=== PATIENT | female | born 1955 | race Two or more races ===

== ENCOUNTER → 2019-11-10 | Outpatient (CLI) | payer OTHER | END | disposition home or self-care (01) | LOC: RAD 11:44 | DX: M54.6 Pain in thoracic spine (principal); M54.5 Low back pain ==

== ENCOUNTER 2019-11-11 08:00 | Outpatient (CLI) | payer OTHER | END 2019-11-11 08:08 | disposition home or self-care (01) | LOC: LAB 08:00 | DX: E03.8 Other specified hypothyroidism (principal); I10 Essential (primary) hypertension ==

== ENCOUNTER 2025-07-30 08:10 | Outpatient (CLI) | payer OTHER ==
[2025-07-30 09:05] LABS: BASO % 0.5 % (0.1-1.2); EOS # 0.07 (0.04-0.54); EOS % 1.7 % (0.7-7.0); LYMPH # 1.23 (1.18-3.74); LYMPH % 29.1 % (19.3-53.1); MEAN PLATELET VOLUME 10.10 fl (9.4-12.4); MONO # 0.48 (0.24-0.82); MONO % 11.3 % (4.7-12.5); NEUT # 2.43 (1.56-6.13); NEUT % 57.4 % (34.0-71.1); RED CELL DISTRIBUTION WIDTH 13.6 % (11.6-14.4)
[2025-07-30 10:02] LABS: ALT/SGPT 26.0 U/L (12-78); AST/SGOT 17.0 U/L (15-37); BILIRUBIN TOTAL 0.85 mg/dL (0.3-1.2); BUN CREA RATIO 20.0 (7.0-25.0); CREATININE SERUM 0.97 mg/dL (0.55-1.02); GFR 56.77; GLOBULINA 2.6 G/DL (2.4-3.5); GLUCOSE FASTING 108.0 mg/dL (65-100); LDH 234.0 U/L (84-246); OSMOLALITY SERUM 291.0 MOSM/KG (275-295); T4 FREE 1.1 NG/ML (0.76-1.46); TSH 2.43 uIU/mL (0.358-3.74)
[2025-07-31 09:08] LABS: ANTI THYROID PEROXIDASE < 9 IU/mL (0-34)
[2025-08-03 07:06] LABS: g6pd quant 245 (127-427)
[2025-08-03 13:07] LABS: PARIETAL CELL ANTIBODIES 139.3 Units (0.0-20.0)
== END 2025-07-30 08:21 | disposition home or self-care (01) ==
LOC: LAB 08:10
PROVIDERS: ATTEND Internal Medicine Hematology & Oncology
DX: D50.8 Other iron deficiency anemias (principal); R79.9 Abnormal finding of blood chemistry, unspecified; I10 Essential (primary) hypertension; R74.02 Elevation of levels of lactic acid dehydrogenase [LDH]; K76.89 Other specified diseases of liver; D63.8 Anemia in other chronic diseases classified elsewhere; D55.0 Anemia due to glucose-6-phosphate dehydrogenase [G6PD] deficiency; E03.8 Other specified hypothyroidism; E06.3 Autoimmune thyroiditis; D51.1 Vitamin B12 deficiency anemia due to selective vitamin B12 malabsorption with proteinuria; D51.0 Vitamin B12 deficiency anemia due to intrinsic factor deficiency; D51.3 Other dietary vitamin B12 deficiency anemia; D69.6 Thrombocytopenia, unspecified

== ENCOUNTER 2025-10-12 08:33 | Outpatient (CLI) | payer OTHER ==
[2025-10-12 10:22] LABS: URINE APPEARANCE Clear; URINE BILIRRUBIN Negative (NEGATIVE); URINE BLOOD Negative; URINE COLOR Yellow; URINE GLUCOSE Negative (NEGATIVE); URINE KETONE Negative (NEGATIVE); URINE LEUKOCYTE Moderate; URINE NITRATE Negative; URINE PROTEIN Negative (NEGATIVE); URINE UROBILINOGEN 1.0 E.U./dl
[2025-10-12 10:22] LABS: BASO % 0.8 % (0.1-1.2); EOS # 0.07 (0.04-0.54); EOS % 1.3 % (0.7-7.0); LYMPH # 1.64 (1.18-3.74); LYMPH % 31.0 % (19.3-53.1); MEAN PLATELET VOLUME 10.10 fl (9.4-12.4); MONO # 0.54 (0.24-0.82); MONO % 10.2 % (4.7-12.5); NEUT # 3.00 (1.56-6.13); NEUT % 56.7 % (34.0-71.1); RED CELL DISTRIBUTION WIDTH 13.7 % (11.6-14.4)
[2025-10-12 10:26] LABS: URINE BACTERIA 33.5 uL (0.0-1933); URINE EPITHELIAL CELLS 25.2 uL (0.0-38.8); URINE RBC 3.2 uL (0.0-20.8); URINE WBC 25.5 uL (0.0-23.2)
[2025-10-12 10:36] LABS: ERYTHROCYTE SEDIMENTATION RATE 5 mm/hr (0-30)
[2025-10-12 10:42] LABS: URINE CAST 0.00 uL (0.0-1.40)
[2025-10-12 10:47] LABS: INR 1.01
[2025-10-12 11:18] LABS: % SATURACION 15.1 % (15-50); ALT/SGPT 24.0 U/L (12-78); AST/SGOT 16.0 U/L (15-37); BILIRUBIN TOTAL 0.58 mg/dL (0.3-1.2); BUN CREA RATIO 18.0 (7.0-25.0); CHOL HDL RATIO 3.2 (0-5.0); CREATININE SERUM 0.9 mg/dL (0.55-1.02); FE 52.0 ug/dl (50-170); GFR 61.72; GLOBULINA 2.8 G/DL (2.4-3.5); GLUCOSE FASTING 110.0 mg/dL (65-100); HDL 60.0 mg/dl (40-60); LDH 212.0 U/L (84-246); LDL 102.0 mg/dl (0-130); OSMOLALITY SERUM 292.0 MOSM/KG (275-295); T4 FREE 1.3 NG/ML (0.76-1.46); TSH 1.11 uIU/mL (0.358-3.74); VLDL 27.0 (0-39)
[2025-10-12 14:27] LABS: VITAMIN D3 25 HYDROXY 62.47 ng/ml (30-120)
[2025-10-13 10:19] LABS: FOLIC ACID 9.89 ng/ml (4.78-20)
== END 2025-10-12 08:45 | disposition home or self-care (01) ==
LOC: LAB 08:33
PROVIDERS: ATTEND Internal Medicine Hematology & Oncology
DX: E03.9 Hypothyroidism, unspecified (principal); E78.5 Hyperlipidemia, unspecified; D69.6 Thrombocytopenia, unspecified; Z71.89 Other specified counseling; D50.8 Other iron deficiency anemias; R79.9 Abnormal finding of blood chemistry, unspecified; I10 Essential (primary) hypertension; R74.02 Elevation of levels of lactic acid dehydrogenase [LDH]; K76.89 Other specified diseases of liver; D51.3 Other dietary vitamin B12 deficiency anemia; D52.9 Folate deficiency anemia, unspecified; E03.8 Other specified hypothyroidism